=== PATIENT | female | born 1975 | race Caucasian/White ===

== ENCOUNTER 2023-12-28 06:50 | Inpatient (IN) | payer BC, SELFPAY ==
[2023-12-27] VITALS (7 sets, daily range): BP systolic 116–130; BP diastolic 75–87
[2023-12-27 18:03] LABS: Glucose - Point of Care 158 mg/dl (70-99)
[2023-12-27] MEDS: NSS 1000 IV (18:52)
[2023-12-27 18:59] LABS: % Basophils 0.7 % (0-2); % Eosinophils 2.3 % (0-6); % Immature Granulocytes 0.1 % (0-0.5); % Lymphocytes 29.8 % (20.5-51.1); % Monocytes 7.5 % (1.7-9.3); % Neutrophils 59.6 % (42.2-75.2); Absolute Basophils 0.1 10^3/uL (0-0.2); Absolute Eosinophils 0.2 10^3/uL (0-0.7); Absolute Monocytes 0.5 10^3/uL (0.1-0.6); Absolute Neutrophils 4.1 10^3/uL (1.4-6.5); Hematocrit 30.4 % (37.0-47.0); Hemoglobin 10.4 g/dL (12.0-16.0); Mean Corp Hgb Conc. 34.2 g/dL (33.0-37.0); Mean Corpuscular Hgb 28.7 pg (27.0-31.0); Mean Corpuscular Volume 83.7 fL (81.0-99.0); Mean Platelet Volume 9.9 fL (7.4-10.4); Nucleated Red Blood Cells % 0 %; Platelet Count 244 10^3/uL (130-400); Red Blood Cell Count 3.63 10^6/uL (4.20-5.40); Red Cell Dist. Width 13.6 % (11.5-14.5); White Blood Cell Count 6.8 10^3/uL (4.8-10.8)
[2023-12-27 19:10] LABS: HCG, Serum Qualitative Screen Negative
[2023-12-27 19:12] LABS: ALT (SGPT) 13 U/L (0-35); AST (SGOT) 19 U/L (14-36); Albumin 3.4 g/dl (3.5-5.0); Alkaline Phosphatase 72 U/L (38-126); Blood Urea Nitrogen 10 mg/dl (7-17); Calcium 8.5 mg/dl (8.4-10.2); Carbon Dioxide 24 mmol/L (22-30); Chloride 109 mmol/L (98-107); Glucose 88 mg/dl (70-99); Lipase 155 U/L (23-300); Potassium 3.5 mmol/L (3.5-5.1); Sodium 138 mmol/L (135-145); Total Bilirubin 0.2 mg/dl (0.2-1.3); Total Protein 5.7 g/dl (6.3-8.2); eGFR > 60.00
[2023-12-27 21:23] LABS: Urine Albumin Negative (Neg - Trace); Urine Bilirubin Negative (Negative); Urine Character Clear (Clear); Urine Color Yellow; Urine Glucose Negative (Negative); Urine Ketone Negative (Negative); Urine Leukocyte Negative (Negative); Urine Nitrite Positive (Negative); Urine Occult Blood Trace (Negative); Urine Specific Gravity 1.015 (<1.030); Urine Urobilinogen Negative (Neg - 1+)
[2023-12-27 21:32] LABS: Urine Bacteria Many (Negative); Urine Red Blood Cell 0-2 /HPF (0-2); Urine White Cell 0-2 /HPF (0-5)
[2023-12-27 22:54] LABS: Glucose - Point of Care 99 mg/dl (70-99)
--- NOTE | 2023-12-27 23:19 | HPS.HSE ---
Family Physician
-
Family Physician: SARA Hayes
Chief Complaint
-
AMS/Hypoglycemia, Flank Pain
History of Present Illness
48yo F with PMH Anxiety/Depression, ADHD, Insomnia, HTN/HLD, Nephrolithiasis presents to ER accompanied by . Pt is lethargic at time of evaluation. aiding in HPI. He reports for the last 1.5 months she has had recurrent hypoglycemic
episodes usually worst at night with associated restlessness, confusion, lethargy. Pt has history of gastric bypass approx 5 years ago with 100lb wt loss. She was previously on metformin. She reports stopping it about 3-4 weeks ago because of her
hypoglycemia.
Patient checks her BG with finger sticks, machine at bedside reading multiple lows 37-64 on 12/27/2023. Pt denies any surreptitious use of insulin. and pt do endorse recent severe anxiety/depression related to losing her job but denies any
SI/HI. Pt also reports L>R flank pain and frequent UTIs over the past few months. Last treated approximately 3 weeks ago with abx course. Denies fever, chills, chest pain, palps, wheezing, cough, dysuria, calf or leg pain/swelling.
ER course: Pt presents to ER wtih V.S.S. WBC 6.8K, Hgb 10.4 g/dL. LFTs wnl. UA many bact, 0-2 WBC, +nitrite. BG 88-99-[address] Brain (-). CT a/p: No acute disease identified. Limited exam. Moderate hepatomegaly. Stable Moderate fecal
material throughout the colon. Improved Nonobstructing 2 mm right renal stone. Endocrine/psych consulted.
Medical History
Past Medical History
Past Medical History: Reports Other (Anxiety/Depression, ADHD, Insomnia, HTN/HLD, Nephrolithiasis)
Past Surgical History: Reports Other (Appendectomy, C-sectionx3, Lithotripsy, Gastric Bypass )
Social History
Tobacco: Non-smoker
Alcohol: Occasional (infrequent, social)
Drug: None
Personal:
Living: With Family
Family History
Family History: Other (Father with DM2, PVD, CHF)
Allergies / Home Medications
Allergies reflects when Allergies were last updated in [facility].
Home Medications with original date entered in [facility]
Allergy/Medication List:
Allergies
Allergy/AdvReac Type Severity Reaction Status Date / Time
No Known Allergies Allergy Verified 12/27/23 18:05
Home Medications
Adderall XR 20 mg PO BID ADD 06/08/22
alprazolam 0.5 mg tablet (Xanax) 0.5 mg PO TID PRN anxiety 06/08/22
atorvastatin 20 mg tablet (Lipitor) 20 mg PO DAILY High cholesterol 06/08/22
buspirone 15 mg tablet 15 mg PO TID Depression 06/08/22
losartan 50 mg tablet 50 mg PO DAILY Blood pressure 06/08/22
Review of Systems
-
Unable to obtain full review of systems at this time due to: Other
A 12 point ROS was completed and negative except as noted: Yes
Physical Exam
Vital Signs
Vital Signs
Temp Pulse Resp BP Pulse Ox
98.3 F 86 14 118/87 98
12/27/23 23:00 12/27/23 23:00 12/27/23 23:00 12/27/23 23:00 12/27/23 23:00
Physical Exam
General: Well Developed, Well Nourished, Pain and Other (Ill appearing, Lethargic. Awakens to verbal and tactile stimuli )
HEENT: NormoCephalic, Atraumatic, Good Dentition, Neck Nontender and Other (Dry MM. ); No Neck Mass
Respiratory: Clear
Cardiac: S1/S2 and Regular Rhythm
Breast: Deferred by me
GI: Soft, Non Distended and Normal Bowel Sounds
Rectal: Deferred by Provider
Genito-urinary: Costovertebral angle tend (L>R); No Dunlap
Musculoskeletal: No Clubbing, No Cyanosis and No Edema
Skin: Warm
Neuro: Nonfocal/grossly intact
Hematologic/Lymphatic: No Lymphadenopathy
Psych: Depressed
Laboratory Results
-
12/27/23 18:51
12/27/23 18:51
Laboratory Results
Total Bilirubin 0.2 mg/dl (0.2-1.3) 12/27/23 18:51
AST 19 U/L (14-36) 12/27/23 18:51
ALT 13 U/L (0-35) 12/27/23 18:51
Alkaline Phosphatase 72 U/L (38-126) 12/27/23 18:51
Lipase 155 U/L (23-300) 12/27/23 18:51
Data Reviewed
-
Medical Tests (Nuc Med, Echo, EKG etc): Image Personally Visualized and interpreted (EKG: NSR @ 99bpm, No acute ischemic changes, QTC 462ms. )
Lab Data: Labs Reviewed by me
Old Records: Reviewed
Impression/Plan
-
Acute Encephalopathy
Reported Hypoglycemia / Hx DM
- Unclear etiology at this time. No hypoglycemia on admission though reports pt consuming sugar packets since presentation
- Home glucometer recording multiple lows 37-64. BG 88-99-158 since admission. Pt denies surreptitious use of insulin.
- Pt was on metformin, discontinued 3-4 weeks ago, though not likely to cause hypoglycemia
- Certainly there is possibility her machine could be miscalibrated but her degree of lethargy is impressive on exam today.
- Continue D5 1/2 @ 60cc/hr. Q4h accuchecks
- LFTS wnl. Check A1C, TSH, AM Cortisol, C-Peptide
- Check UDS and ETOH level
- Consult Endocrine
Abdominal and Flank Pain / Hx Nephrolithiasis
- UA inconsistent with infection, afeb/no leukocytosis
- CT a/p No acute disease identified. Limited exam. Moderate hepatomegaly. Stable Moderate fecal material throughout the colon. Improved Nonobstructing 2 mm right renal stone.
- Possibly related to constipation. Reports last BM a few days ago. Continue miralax bid and prn bowel regimen
Anxiety/Depression - reports worsening depression without SI/HI related to job loss. Holding sedatives (xanax). Continue buspirone. Psych consulted.
ADHD - Continue adderall
HTN/HLD - BP stable. Continue statin. Holding losartan to observe for any hypotension trends causing encephalopathy.
Diet: Regular
DVT Ppx: Lovenox
Code Status: Full Code
[2023-12-27] MEDS: DEXTROSE 50% SYRINGE 12.5 GRAMS IV (23:20)
[2023-12-27] MEDS: D5/0.45%NACL 1000 IV (23:42)
[2023-12-28 00:15] VITALS: BP 120/81; BMI 27.3
[2023-12-28 00:25] LABS: Glucose - Point of Care 91 mg/dl (70-99)
[2023-12-28] MEDS: MIRALAX PO (00:59)
[2023-12-28 01:26] LABS: Alcohol None Detected
[2023-12-28 01:38] LABS: Amphetamines Positive (Negative); Barbiturates Negative (Negative); Benzodiazepines Positive (Negative); Buprenorphine Negative (Negative); Cocaine Negative (Negative); Marijuana Negative (Negative); Methadone Negative (Negative); Methamphetamines Negative (Negative); Opiates Negative (Negative); Phencyclidine Negative (Negative); Tricyclic Antidepressants Negative (Negative)
[2023-12-28 02:01] LABS: Fentanyl, Urine Negative (Negative)
[2023-12-28 04:31] LABS: Glucose - Point of Care 102 mg/dl (70-99)
[2023-12-28 06:48] LABS: % Basophils 0.5 % (0-2); % Eosinophils 2.7 % (0-6); % Immature Granulocytes 0.2 % (0-0.5); % Lymphocytes 25.3 % (20.5-51.1); % Monocytes 7.6 % (1.7-9.3); % Neutrophils 63.7 % (42.2-75.2); Absolute Eosinophils 0.2 10^3/uL (0-0.7); Absolute Lymphocytes 1.6 10^3/uL (1.2-3.4); Absolute Monocytes 0.5 10^3/uL (0.1-0.6); Hematocrit 32.9 % (37.0-47.0); Hemoglobin 11.2 g/dL (12.0-16.0); Mean Corpuscular Hgb 28.7 pg (27.0-31.0); Mean Corpuscular Volume 84.4 fL (81.0-99.0); Mean Platelet Volume 10.1 fL (7.4-10.4); Nucleated Red Blood Cells % 0 %; Platelet Count 259 10^3/uL (130-400); Red Cell Dist. Width 13.9 % (11.5-14.5); White Blood Cell Count 6.3 10^3/uL (4.8-10.8)
[2023-12-28 07:00] VITALS: BP 128/85
[2023-12-28 07:27] LABS: Blood Urea Nitrogen 10 mg/dl (7-17); Calcium 8.7 mg/dl (8.4-10.2); Carbon Dioxide 25 mmol/L (22-30); Chloride 111 mmol/L (98-107); Estimated Creatinine Clearance 77 ml/min; Glucose 63 mg/dl (70-99); Potassium 3.4 mmol/L (3.5-5.1); Sodium 140 mmol/L (135-145); eGFR > 60.00
[2023-12-28 07:50] LABS: Glucose - Point of Care 176 mg/dl (70-99)
[2023-12-28 08:00] LABS: Cortisol, Random 10.6 ug/dl; TSH Reflex To Free T4 0.71 uIU/ml (0.47-4.68)
[2023-12-28] MEDS: BUSPAR 15 MG PO ×3 (08:24→22:19)
[2023-12-28] MEDS: MIRALAX 17 GRAMS PO ×2 (08:24→19:52)
[2023-12-28 10:56] LABS: Glycohemoglobin (HgbA1c) 5.6 % (4.0-5.6)
[2023-12-28 12:02] LABS: Glucose - Point of Care 225 mg/dl (70-99)
--- NOTE | 2023-12-28 15:09 | CS.PSYCHR ---
Consult Summary - Psychiatry
-
Pt is 48 yo female brought in by to ER due to lethargy/excessive sleepiness. reported recurrent hypoglycemic episodes usually worst at night with associated restlessness, confusion, lethargy for the past 1 1/2 months. Pt seen with
present. Pt sleeping soundly, resting in bed. answered questions, stated pt has not been awake today. Pt reportedly has been more depressed recently since loss of her job. unsure how often pt takes prn Xanax.
PMH: HTN, HLD, Nephrolithiasis; gastric bypass approx 5 years ago with reported 100 lb wt loss
Psych hx: anxiety, depression, Rx Adderall XR and IR by outpatient psychiatrist Dr Alas for possible ADHD, also Rx'd Xanax 0.5 mg prn, last filled #90 on 11/27/23; Buspar 15 mg TID
MSE: pt sound asleep/lethargic. Unable to interview
Imp: Delirium, with lethargy. Depression could cause fatigue. but not this degree of drowsiness/lethargy
Unspecified depression, anxiety
Rec: Will order Xanax 0.5 mg on prn basis, in case pt shows signs of benzo withdrawal or significant anxiety, would continue to hold if sedated
Would hold off Adderall XR/IR- increases potential benzo withdrawal risks, and indication is unclear
Return to Outpatient Psychiatrist when medically stable
Will follow
[2023-12-28 15:12] VITALS: BP 129/92
[2023-12-28] MEDS: MAXIPIME 2000 MG IV (15:59)
[2023-12-28] MEDS: STERILE WATER FOR INJECTION 10 ML IV (16:00)
[2023-12-28] MEDS: NSS 1000 IV (16:00)
[2023-12-28 16:01] LABS: Glucose - Point of Care 134 mg/dl (70-99)
--- NOTE | 2023-12-28 16:58 | W.PN.HOSP.TC ---
Today's Communication/Plan
-
IV antibiotics pending urine cultures
IV fluids
Monitor mental status.
Assessment / Plan
Assessment / Plan
Impression
Toxic metabolic encephalopathy.
Reported hypoglycemia, not documented after admission.
UTI, possible pyelonephritis.
Type 2 diabetes previously on metformin.
Essential hypertension.
Dyslipidemia
ADHD.
Anxiety/depression
Status post gastric bypass with over 100 pound weight loss
Plan
Toxic metabolic encephalopathy with lethargy suspect secondary to UTI.
Urine drug screen positive for amphetamines and benzodiazepines (patient is on Adderall and Xanax prior to presentation).
Lethargic, although rest of the neurologic examination with no focal findings
Possibly related to UTI.
Address UTI.
Continue Adderall and Xanax with caution
Continue BuSpar
UTI.
Afebrile and hemodynamically stable.
No evidence for sepsis
Exam consistent with right flank tenderness
CT scan with right 2 mm renal colliculi with no obstruction no hydronephrosis.
Patient reports multiple courses of antibiotics prior to presentation, although with persistent right flank pain and foul-smelling urine
Will start cefepime pending urine cultures
Continue IV hydration
Type 2 diabetes
Hemoglobin A1c 5.6
Reported hypoglycemia at home, although no recurrence since admission.
Currently hyperglycemic
Reported being taken off metformin, latest less likely would cause hypoglycemia.
Doubt surreptitious use of medications
C-peptide pending.
Stop IV fluids
Diet has been advanced
Monitor oral intake and for recurrent hypoglycemia while on serial Accu-Cheks.
Essential hypertension/dyslipidemia
Continue losartan and Lipitor
ADHD/anxiety continue Adderall, BuSpar, exam
Discussed with patient's at the bedside.
Anticipated Discharge: 24 - 48 hours
Subjective/Interval History
-
Date of Service: December 28, 2023
Objective Data
-
Labs:
Laboratory Results
12/28/23
06:26
WBC 6.3
Hgb 11.2 L
Hct 32.9 L
Plt Count 259
Sodium 140
Potassium 3.4 L
Chloride 111 H
Carbon Dioxide 25
BUN 10
Creatinine 0.7
Glucose 63 L
Calcium 8.7
Vital Signs:
Vital Signs
Temp Pulse Resp BP Pulse Ox
97.9 F 92 18 129/92 98
12/28/23 15:12 12/28/23 15:12 12/28/23 15:12 12/28/23 15:12 12/28/23 15:12
I&O
12/27/23 12/28/23 12/29/23
06:59 06:59 06:59
Intake Total 480 / 480
Balance 480 / 480
Physical Exam
-
General: Well Developed and No Apparent Distress
HEENT: Normocephalic, Atraumatic and Moist Mucous Membranes
Respiratory: Clear to Auscultation
Cardiac: Regular Rhythm and S1/S2; Negative Murmur, Rub or Gallop
GI: Soft, Nontender, Nondistended and Normal Bowel Sounds; Negative Organomegaly
Rectal: Deferred by Provider
Musculoskeletal: No Clubbing, No Cyanosis and No Edema
Skin: Negative Rash
Neuro: Nonfocal/Grossly Intact and Other (Generally weak and lethargic, although communicative and responding to all questions appropriately.)
[2023-12-28] MEDS: LIPITOR 20 MG PO (17:38)
[2023-12-28] MEDS: LOVENOX 40 MG SC (17:38)
[2023-12-28] MEDS: SENOKOT-S 1 TABLET PO (17:39)
[2023-12-28 20:24] LABS: Glucose - Point of Care 75 mg/dl (70-99)
[2023-12-28 22:12] LABS: Glucose - Point of Care 105 mg/dl (70-99)
--- NOTE | 2023-12-28 22:45 | PTCARENOTE ---
Patient is very anxious/restless and adamantly asking for Xanax to sleep. Xanax given as ordered
[2023-12-28] MEDS: XANAX 0.5 MG PO (22:48)
[2023-12-28] MEDS: TYLENOL 650 MG PO (22:48)
[2023-12-28 23:13] VITALS: BP 131/93
[2023-12-29 02:33] LABS: Glucose - Point of Care 95 mg/dl (70-99)
[2023-12-29] MEDS: MAXIPIME 2000 MG IV ×2 (02:59→15:51)
[2023-12-29] MEDS: STERILE WATER FOR INJECTION 10 ML IV ×2 (02:59→15:51)
[2023-12-29 03:52] LABS: Glucose - Point of Care 140 mg/dl (70-99)
[2023-12-29 06:09] LABS: Glucose - Point of Care 90 mg/dl (70-99)
[2023-12-29 06:28] LABS: Glucose - Point of Care 86 mg/dl (70-99)
[2023-12-29 07:00] VITALS: BP 149/93
[2023-12-29 08:02] LABS: Glucose - Point of Care 89 mg/dl (70-99)
[2023-12-29] MEDS: MIRALAX 17 GRAMS PO ×2 (08:31→20:23)
[2023-12-29] MEDS: BUSPAR 15 MG PO ×3 (08:31→21:25)
[2023-12-29 09:02] LABS: % Basophils 0.7 % (0-2); % Eosinophils 3.4 % (0-6); % Immature Granulocytes 0.2 % (0-0.5); % Lymphocytes 28.9 % (20.5-51.1); % Monocytes 8.4 % (1.7-9.3); % Neutrophils 58.4 % (42.2-75.2); Absolute Eosinophils 0.2 10^3/uL (0-0.7); Absolute Lymphocytes 1.6 10^3/uL (1.2-3.4); Absolute Monocytes 0.5 10^3/uL (0.1-0.6); Absolute Neutrophils 3.1 10^3/uL (1.4-6.5); Hematocrit 33.3 % (37.0-47.0); Hemoglobin 11.3 g/dL (12.0-16.0); Mean Corp Hgb Conc. 33.9 g/dL (33.0-37.0); Mean Corpuscular Volume 85.4 fL (81.0-99.0); Mean Platelet Volume 10.2 fL (7.4-10.4); Nucleated Red Blood Cells % 0 %; Platelet Count 241 10^3/uL (130-400); Red Cell Dist. Width 13.4 % (11.5-14.5); White Blood Cell Count 5.4 10^3/uL (4.8-10.8)
[2023-12-29 09:17] LABS: Glucose - Point of Care 119 mg/dl (70-99)
[2023-12-29 09:32] LABS: Blood Urea Nitrogen 11 mg/dl (7-17); Carbon Dioxide 28 mmol/L (22-30); Chloride 105 mmol/L (98-107); Estimated Creatinine Clearance 89 ml/min; Glucose 79 mg/dl (70-99); Potassium 3.8 mmol/L (3.5-5.1); Sodium 139 mmol/L (135-145); eGFR > 60.00
--- NOTE | 2023-12-29 10:36 | W.PN.UPDATE ---
Update Note
Progress Note Update
Patient seen at bedside, chart reviewed, discussed with RN. Ms. Moran was asleep when I entered the room, she did awake to name but quickly fell back asleep. I did ask how she was doing and she reported she is very tired and is sick of being in
pain but did not elaborate. I probed to see if she felt as if she was depressed and her answer was 'maybe'. She then fell back asleep and would no longer answer me. RN reports she woke up for breakfast, ate all of her breakfast, buttered her own
toast, etc. then when she was done she told the nurse she was tired and went back to sleep. Glucoses being monitored frequently and reported as low normal. TSH also checked and WNL. Xanax ordered as a PRN as it is not clear how often she was using
at home and she is still quite sedate, she did receive one dose overnight.
Impression/Recommendations: Delirium with lethargy; Unspecified depression and anxiety by history - Could continue Xanax 0.5 mg PRN in attempts to avoid any benzo withdrawal if she is to be more awake or if reports of significant anxiety. Adderall
should continue to be held for now with no clear indication for it's use and usage could potentiate benzo withdrawal.
[2023-12-29] MEDS: SENOKOT-S 1 TABLET PO (11:53)
[2023-12-29] MEDS: NSS 1000 IV ×2 (11:53→21:24)
[2023-12-29 12:06] LABS: Glucose - Point of Care 97 mg/dl (70-99)
[2023-12-29 15:47] VITALS: BP 150/94
--- NOTE | 2023-12-29 16:13 | W.PN.HOSP.TC ---
Today's Communication/Plan
-
Continue cefepime pending urine cultures.
Continue IV fluids.
Psychiatry input appreciated
Patient mental status back to baseline
Assessment / Plan
Assessment / Plan
Impression
Toxic metabolic encephalopathy.
Reported hypoglycemia, not documented after admission.
UTI, possible pyelonephritis.
Type 2 diabetes previously on metformin.
Essential hypertension.
Dyslipidemia
ADHD.
Anxiety/depression
Status post gastric bypass with over 100 pound weight loss
Plan
Toxic metabolic encephalopathy with lethargy suspect secondary to UTI.
Urine drug screen positive for amphetamines and benzodiazepines (patient is on Adderall and Xanax prior to presentation).
Lethargic, although rest of the neurologic examination with no focal findings
Possibly related to UTI.
Address UTI.
Agree with holding Adderall and continuing Xanax.
Continue BuSpar
UTI.
Afebrile and hemodynamically stable.
No evidence for sepsis
Exam consistent with right flank tenderness
CT scan with right 2 mm renal colliculi with no obstruction no hydronephrosis.
Patient reports multiple courses of antibiotics prior to presentation, although with persistent right flank pain and foul-smelling urine
Will start cefepime pending urine cultures
Continue IV hydration
Type 2 diabetes
Hemoglobin A1c 5.6
Reported hypoglycemia at home, although no recurrence since admission.
Currently hyperglycemic
Reported being taken off metformin, latest less likely would cause hypoglycemia.
Doubt surreptitious use of medications
C-peptide pending.
Stop IV fluids
Diet has been advanced
Monitor oral intake and for recurrent hypoglycemia while on serial Accu-Cheks.
Essential hypertension/dyslipidemia
Continue losartan and Lipitor
ADHD/anxiety continue Adderall, BuSpar, exam
Discussed with patient's at the bedside.
Anticipated Discharge: 24 - 48 hours
Subjective/Interval History
-
Date of Service: December 29, 2023
Objective Data
-
Labs:
Laboratory Results
12/29/23
07:59
WBC 5.4
Hgb 11.3 L
Hct 33.3 L
Plt Count 241
Sodium 139
Potassium 3.8
Chloride 105
Carbon Dioxide 28
BUN 11
Creatinine 0.6
Glucose 79
Calcium 9.0
Vital Signs:
Vital Signs
Temp Pulse Resp BP Pulse Ox
98.3 F 88 17 150/94 97
12/29/23 15:47 12/29/23 15:47 12/29/23 15:47 12/29/23 15:47 12/29/23 15:47
I&O
12/28/23 12/29/23 12/30/23
06:59 06:59 06:59
Intake Total 4320 / 4320
Balance 4320 / 4320
Physical Exam
-
General: Well Developed and No Apparent Distress
HEENT: Normocephalic, Atraumatic and Moist Mucous Membranes
Respiratory: Clear to Auscultation
Cardiac: Regular Rhythm and S1/S2; Negative Murmur, Rub or Gallop
GI: Soft, Nontender, Nondistended and Normal Bowel Sounds; Negative Organomegaly
Rectal: Deferred by Provider
Musculoskeletal: No Clubbing, No Cyanosis and No Edema
Skin: Negative Rash
Neuro: Awake, Alert, Oriented and Nonfocal/Grossly Intact
Psych: Anxious
[2023-12-29 16:15] LABS: Glucose - Point of Care 128 mg/dl (70-99)
--- NOTE | 2023-12-29 16:15 | CM ---
Patient seen bedside with , left the room for initial assessment. Patient resides with spouse and three children in multiple story home. Patient is independent with ADLs/IADLs, no DME, VN, or SNF. Patient reports she recently lost her
job which has been causing her a lot of stress financially. Patient interested in resources from [email or web address] regarding food assistance. Patient PCP Julia Hansen, pharmacy [facility] in [place], confirms prescription coverage. CM reviewed OBS form,
refused to sign, placed in chart. CM will continue to follow for all discharge planning needs.
Plan; home no needs, interested in resources from [email or web address]
[2023-12-29] MEDS: LIPITOR 20 MG PO (17:26)
[2023-12-29] MEDS: LOVENOX 40 MG SC (17:26)
[2023-12-29 20:29] LABS: Glucose - Point of Care 149 mg/dl (70-99)
[2023-12-29] MEDS: XANAX 0.5 MG PO (21:28)
[2023-12-29 23:15] VITALS: BP 154/97
--- NOTE | 2023-12-29 23:31 | PTCARENOTE ---
Pt has been anxious and feeling hot wanting to leave the hospital. She wanted to walk the hallways which she could, but decided to leave the unit to go to the chapel. Do to her condition, pt is a fall risk. Pt is AAOX3. Pt was escorted back to the
unit with the assistance of security. Pt continued to be anxious and was advice no to leave with medical advice. Pt was move to another room close to the nurses station to help her with the sensation of feeling hot.
[2023-12-30 00:04] LABS: Glucose - Point of Care 78 mg/dl (70-99)
[2023-12-30 00:49] LABS: C-Peptide 5.2 ng/mL (0.5-3.3)
[2023-12-30] MEDS: MAXIPIME 2000 MG IV (04:22)
[2023-12-30] MEDS: STERILE WATER FOR INJECTION 10 ML IV (04:22)
[2023-12-30 04:24] LABS: Glucose - Point of Care 82 mg/dl (70-99)
[2023-12-30 07:18] LABS: Glucose - Point of Care 99 mg/dl (70-99)
[2023-12-30] MEDS: NSS 1000 IV (07:23)
[2023-12-30] MEDS: MIRALAX 17 GRAMS PO (07:23)
[2023-12-30] MEDS: BUSPAR 15 MG PO (07:23)
[2023-12-30 07:43] VITALS: BP 149/93
--- NOTE | 2023-12-30 11:48 | W.PN.UPDATE ---
Update Note
Progress Note Update
reviewed chart . attempted to see patient but she was sleeping. spoke with nursing who report that patient was very sedated yesterday but today when she is awake she is more alert and able to engage. will [facility] back this afternoon to see her if
possible when she is awake.
[2023-12-30 12:03] LABS: Glucose - Point of Care 95 mg/dl (70-99)
--- NOTE | 2023-12-30 12:22 | W.DS.TRANS ---
DC Summary - [facility] Room Supervisor
-
Discharge Instructions:
Discharge Diagnosis/Procedures UTI, TME
Diet Regular
Instructions:
Stand-Alone Forms:
Changes to Home Medications: Yes
Discharge Medications:
DC Medications w/original date entered in [facility]
alprazolam 0.5 mg tablet (Xanax) 0.5 mg PO TID PRN anxiety 06/08/22
atorvastatin 20 mg tablet (Lipitor) 20 mg PO DAILY High cholesterol 06/08/22
buspirone 15 mg tablet 15 mg PO TID Depression 06/08/22
losartan 50 mg tablet 50 mg PO DAILY Blood pressure 06/08/22
cephalexin 500 mg capsule 500 mg PO Q8H #15 caps 12/30/23
Home Medication Changes
Adderall stopped
Pending Results: No
--- NOTE | 2023-12-30 12:34 | CM ---
patient is stable for dc home with no needs.
--- NOTE | 2023-12-30 14:57 | ED.GENMED ---
History of Present Illness
General
Chief Complaint: Blood Sugar Problem
Source: patient and spouse
Exam Limitations: none
Time Seen by Provider: 12/27/23 18:15
History of Present Illness
History of Present Illness:
48-year-old female presents with episodes of lethargy confusion change in mental status intermittently for months. Seems to be associated with hypoglycemic episodes. Blood sugar has dropped into the 20s and 30s based on her home monitor. She is
on metformin. She has a history of gastric bypass. She denies unusual headache photophobia fever. She has had recurrent UTIs.
Past History
Past History
ED Past Medical History: Hypercholesterolemia, NIDDM and Other (Recurrent UTIs)
ED Past Surgical History: , Urological and Other (Gastric bypass)
Review of Systems
Review of Systems
All Other Systems: Not applicable
Constitutional: Denies fever or chills
Phy Exam
Physical Exam
Physical Exam:
GENERAL: Alert and oriented in no apparent distress. At times lethargic
EYE: Orbits normal.
NECK: Supple, no thyroid palpable
ENT: Pharynx without erythema
CARDIAC: Regular rate and rhythm without any obvious murmurs.
LUNGS: Clear breath sounds,normal
ABDOMEN: Soft, without focal tenderness or distention
NEUROLOGICAL: Alert and oriented , grossly non-focal. Neck supple.
SKIN: Warm and dry, no rash or lesion, no discoloration, skin intact.
MUSCULOSKELETAL: No edema,no deformity.Good color
PSYCH: Normal and appropriate interaction.
Course
Orders/Labs/Results
Orders:
Orders
12/27/23 18:35
Electrocardiogram (*1) Stat
Reason for Study: Other
Other Reason for Exam: r/o kidney stone
CT Abd/pel Without Iv Or Oral Urgent
Comment:
Reason For Exam: Recurring bladder infection/flank pain
CT Head W/o Iv Contrast Urgent
Comment:
Reason For Exam: Recurrent lethargy
EKG- Treatment ONCE
IV Insert/Care/Rem.- Treatment PRN
0.9% Sodium Chloride 1000 ml [Nss] 1,000 ml IV BOLUS
Test Result ONCE
Pulse Ox/cont/shift [RESP] Stat
Quantity: 1
12/27/23 18:51
Alcohol Urgent
Complete Blood Count/With Diff Urgent
Comprehensive Metabolic Panel Urgent
HCG, Serum Qualitative Screen Urgent
Lipase Urgent
12/27/23 21:16
Fentanyl, Urine Urgent
Urinalysis Reflex To Culture Urgent
Date Specimen was Collected: 12/27/23
Time Specimen was Collected: 21:14
Urine Drug Abuse Screen Urgent
Date Specimen was Collected: 12/27/23
Time Specimen was Collected: 21:14
Urine Microscopic Reflex Cult Urgent
Urine Culture Urgent
JASMIN Source: U
Specimen Description:
Date Specimen was Collected: 12/27/23
Time Specimen was Collected: 21:14
12/27/23 22:00
Flush (0.9% Sodium Chloride) [Flush (Nss)] See Dose Instructions IV PER PROTOCOL
12/27/23 23:13
Dextrose 50%-Water [Dextrose 50% Syringe] 12.5 grams IV NOW STA
12/27/23 23:14
Admit/Transfer Patient As Directed
Co-Sign Provider:
Level of Care: Observation services
Assign to:: Medical/Surgical
Physician / Group: Frances
Transfer to: Medical/Surgical
Diagnosis: Hypoglycemia/AMS
Patient Condition: Fair
12/27/23 23:15
Code Status As Directed
Resuscitation Status: Full Code
12/27/23 23:19
Consult Notification Routine
Specialty to Notify: Psychiatry
Date consulting provider notified: 12/28/23
Time consulting provider notified: 07:36
Notified:: Provider
PSYCHIATRY CONSULT Routine
Consulting Provider: Reny Valerio
Was physician already notified: No
Reason for consult: anxiety/depression/AMS
12/27/23 23:20
Accucheck [Bedside Glucose Monitoring] Q4H
Frequency: q4h
12/27/23 23:23
C-Peptide [S] Urgent
Comment: add or draw
12/27/23 23:45
Dextrose 5%/0.45%Sodchl 1000ML [D5/0.45%NaCl] 1,000 ml IV 60 mls/hr
12/28/23 00:19
Acetaminophen [Tylenol] 650 mg PO Q4HPRN PRN
Bisacodyl [Dulcolax] 10 mg RECTAL [id number] PRN
Docusate W/Senna [Senokot-S] 1 tablet PO BIDPRN PRN
Ipratropium/Albuterol Sulfate [Duoneb] 3 ml INH R Q4HPRN PRN
Ondansetron Injectable [Zofran] 4 mg IV Q6HPRN PRN
Polyethylene Glycol Powder [Miralax] 17 grams PO BID
12/28/23 00:19
Consult Endocrinology [ENDOCRINOLOGY CONSULT] Routine
Consulting Provider: Laura Banerjee
Was physician already notified: No
Reason for consult: hypoglycemia/AMS at home- BG 37-64
Consult Notification Routine
Specialty to Notify: Endocrinology
Date consulting provider notified: 12/28/23
Time consulting provider notified: 07:37
Notified:: Provider
Activity As Directed
Activity Level: With Assistance
Neurological Checks As Directed
Frequency: q4h
Vital Signs As Directed
Frequency: Per unit guidelines
DX Deep Vein Thrombosis Video Routine
12/28/23 00:56
Add On- LAB Routine
Tests Added?: urine drug screen, ETOH level
12/28/23 02:28
Pt Screening Request from Bernie Routine
12/28/23 03:20
Accucheck [Bedside Glucose Monitoring] Q4H
Frequency: q4h
12/28/23 Breakfast
Regular
At Your Request: Full Participation
Does patient need a safe tray?: No
12/28/23 06:26
Basic Metabolic Panel IN AM
Complete Blood Count/With Diff IN AM
Cortisol, Random IN AM
Hemoglobin A1c [Glycohemoglobin (HgbA1c)] IN AM
TSH Reflex To Free T4 IN AM
12/28/23 07:20
Accucheck [Bedside Glucose Monitoring] Q4H
Frequency: q4h
12/28/23 08:00
Adderall XR See Dose Instructions PO BID
Buspirone [Buspar] 15 mg PO TID
12/28/23 11:20
Accucheck [Bedside Glucose Monitoring] Q4H
Frequency: q4h
12/28/23 12:19
Level of Care Change As Directed
Level of Care: Inpatient admission
Reason for Hospitalization: TME, UTI
Expected length of stay greater than two midnights?: Yes
ELOS- Estimated Length of Stay in days: 2
I certify the patient meets the requirements for IP care: Yes
12/28/23 12:44
Request for Physical Therapy [NOTICE] Routine
12/28/23 14:45
0.9% Sodium Chloride 1000 ml [Nss] 1,000 ml IV DIRECTED
12/28/23 15:20
Accucheck [Bedside Glucose Monitoring] Q4H
Frequency: q4h
12/28/23 15:23
Alprazolam [Xanax] 0.5 mg PO Q6HPRN PRN
12/28/23 16:00
Cefepime HCl [Maxipime] 2,000 mg IV Q12H
Sterile Water [Sterile Water For Injection] 10 ml IV Q12H
12/28/23 18:00
Atorvastatin [Lipitor] 20 mg PO QPM
Enoxaparin Sodium [Lovenox] 40 mg SC QPM
12/28/23 19:20
Accucheck [Bedside Glucose Monitoring] Q4H
Frequency: q4h
12/28/23 23:20
Accucheck [Bedside Glucose Monitoring] Q4H
Frequency: q4h
12/29/23 03:20
Accucheck [Bedside Glucose Monitoring] Q4H
Frequency: q4h
12/29/23 07:20
Accucheck [Bedside Glucose Monitoring] Q4H
Frequency: q4h
12/29/23 07:59
BMP [Basic Metabolic Panel] IN AM
CBC/With Diff [Complete Blood Count/With Diff] IN AM
12/29/23 11:20
Accucheck [Bedside Glucose Monitoring] Q4H
Frequency: q4h
12/29/23 11:45
0.9% Sodium Chloride 1000 ml [Nss] 1,000 ml IV 100 mls/hr
12/29/23 15:20
Accucheck [Bedside Glucose Monitoring] Q4H
Frequency: q4h
12/29/23 19:20
Accucheck [Bedside Glucose Monitoring] Q4H
Frequency: q4h
12/29/23 23:20
Accucheck [Bedside Glucose Monitoring] Q4H
Frequency: q4h
12/30/23 03:20
Accucheck [Bedside Glucose Monitoring] Q4H
Frequency: q4h
12/30/23 07:20
Accucheck [Bedside Glucose Monitoring] Q4H
Frequency: q4h
12/30/23 11:20
Accucheck [Bedside Glucose Monitoring] Q4H
Frequency: q4h
12/30/23 12:21
Discharge Patient As Directed
Month/Year vaccine administered for 4602-2117 flu season: 8622-3666 Season/Unsure
Do you have a designated caregiver: Yes-same as spokesperson
12/30/23 12:31
Add On- LAB Routine
Tests Added?: Sulfonylurea level
Abnormal Lab Results
12/27/23 12/27/23 12/27/23
18:02 18:51 21:16
RBC 3.63 L 10^6/uL
(4.20-5.40)
Hgb 10.4 L g/dL
(12.0-16.0)
Hct 30.4 L %
(37.0-47.0)
Potassium
Chloride 109 H mmol/L
(98-107)
Glucose
C-Peptide
Total Protein 5.7 L g/dl
(6.3-8.2)
Albumin 3.4 L g/dl
(3.5-5.0)
Ur Occult Blood Reflex Trace A
(Negative)
Urine Nitrite (Reflex) Positive A
(Negative)
Urine Bacteria (Reflex) Many A
(Negative)
Ur Amphetamines Screen Positive H
(Negative)
U Benzodiazepines Scrn Positive H
(Negative)
POC Glucose 158 H mg/dl
(70-99)
12/28/23 12/28/23 12/28/23
04:29 06:26 07:48
RBC 3.90 L 10^6/uL
(4.20-5.40)
Hgb 11.2 L g/dL
(12.0-16.0)
Hct 32.9 L %
(37.0-47.0)
Potassium 3.4 L mmol/L
(3.5-5.1)
Chloride 111 H mmol/L
(98-107)
Glucose 63 L mg/dl
()
C-Peptide 5.2 H ng/mL
(0.5-3.3)
Total Protein
Albumin
Ur Occult Blood Reflex
Urine Nitrite (Reflex)
Urine Bacteria (Reflex)
Ur Amphetamines Screen
U Benzodiazepines Scrn
POC Glucose 102 H mg/dl 176 H mg/dl
() ()
12/28/23 12/28/23 12/28/23
12:00 15:59 22:10
RBC
Hgb
Hct
Potassium
Chloride
Glucose
C-Peptide
Total Protein
Albumin
Ur Occult Blood Reflex
Urine Nitrite (Reflex)
Urine Bacteria (Reflex)
Ur Amphetamines Screen
U Benzodiazepines Scrn
POC Glucose 225 H mg/dl 134 H mg/dl 105 H mg/dl
() () ()
12/29/23 12/29/23 12/29/23
03:51 07:59 09:16
RBC 3.90 L 10^6/uL
(4.20-5.40)
Hgb 11.3 L g/dL
(12.0-16.0)
Hct 33.3 L %
(37.0-47.0)
Potassium
Chloride
Glucose
C-Peptide
Total Protein
Albumin
Ur Occult Blood Reflex
Urine Nitrite (Reflex)
Urine Bacteria (Reflex)
Ur Amphetamines Screen
U Benzodiazepines Scrn
POC Glucose 140 H mg/dl 119 H mg/dl
(70-99) (70-99)
12/29/23 12/29/23
16:14 20:28
RBC
Hgb
Hct
Potassium
Chloride
Glucose
C-Peptide
Total Protein
Albumin
Ur Occult Blood Reflex
Urine Nitrite (Reflex)
Urine Bacteria (Reflex)
Ur Amphetamines Screen
U Benzodiazepines Scrn
POC Glucose 128 H mg/dl 149 H mg/dl
(70-99) (70-99)
12/29/23 07:59
12/29/23 07:59
Vital Signs
Initial and Last Documented VS:
Initial Vital Signs
Temp Pulse Resp BP Pulse Ox
98.8 F 109 16 119/81 96
12/27/23 18:00 12/27/23 18:00 12/27/23 18:00 12/27/23 18:00 12/27/23 18:00
Last Documented Vital Signs
Temp Pulse Resp BP Pulse Ox
98.1 F 90 18 149/93 99
12/30/23 07:43 12/30/23 07:43 12/30/23 07:43 12/30/23 07:43 12/30/23 08:00
MDM/Problems Addressed
Differential Diagnosis Includes:
Patient at times mildly lethargic but nontoxic. Nonfocal exam. No fever. Patient shows on her monitor reported recurrent episodes of hypoglycemia however no documented episodes here. Given the recurrence of these episodes and mental status
change patient will be admitted. Urine results were pending on ER disposition time
*Radiology
Radiology exam reviewed: radiology read reviewed (Negative head CT. Unremarkable abdominal CT)
*Pulse Oximetry
Patient hypoxic: no
*Critical Care Note
Total Time (30-74mins, 75-104mins- exclusive of procedures): Not Applicable
Data Reviewed
Review of Other/Old Records Reveals: Labs and Records
ED Attending Note
-
Portions of this chart may have been created with voice recognition software.� Occasional wrong word or��sound alike� substitutions may have occurred due to the inherent limitations of voice recognition software.
Discharge Plan
Departure
Patient Disposition: Admit
Date of Disposition: 12/27/23
Time of Disposition: 21:04
Presentation/result/management discussed w/ accepting MD/DO: Hospitalist
Discharge Problem:
Change in mental status, Recurrent hypoglycemia, History of recurrent UTI
Interventions
Interventions:
*Risk Screen - Suicide Last Done: 12/27/23 18:08
*General Assessment Last Done: 12/27/23 18:00
*Neglect/Abuse Screening Last Done: 12/27/23 18:08
ED- Fall Risk Assessment Last Done: 12/27/23 23:47
*ED COVID-19 Vaccine History Last Done: 12/27/23 18:00
*Nursing Disposition Last Done: 12/27/23 23:47
ED- Neurological Assessment Last Done: 12/27/23 18:55
Discharge Date and Time
Discharge Date/Time: 12/28/23 00:05
== END 2023-12-30 12:45 | disposition home or self-care (01) | DRG 689 ==
LOC: EICU 06:50
PROVIDERS: ADMITTING PHYSICIAN Internal Medicine; ATTENDING PHYSICIAN Internal Medicine; EMERGENCY PHYSICIAN Emergency Medicine; FAMILY PHYSICIAN Nurse Practitioner; OTHER PHYSICIAN Psychiatry & Neurology Psychiatry
DX: N39.0 Urinary tract infection, site not specified (principal); G92.8 Other toxic encephalopathy; E78.00 Pure hypercholesterolemia, unspecified; E11.9 Type 2 diabetes mellitus without complications; I10 Essential (primary) hypertension; N20.0 Calculus of kidney; Z60.8 Other problems related to social environment; K59.00 Constipation, unspecified; B96.20 Unspecified Escherichia coli [E. coli] as the cause of diseases classified elsewhere; G47.00 Insomnia, unspecified; F90.9 Attention-deficit hyperactivity disorder, unspecified type; F32.A Depression, unspecified; F41.9 Anxiety disorder, unspecified; Z98.84 Bariatric surgery status; Z87.440 Personal history of urinary (tract) infections; Z79.84 Long term (current) use of oral hypoglycemic drugs
CPT/HCPCS: 70450; 74176; 80048; 80053; 80306; 80307; 81003; 81015; 82077; 82533; 82962; 83036; 83690; 84443; 84681; 84703; 85025; 87077; 87086; 87186; 93005; 96360; 99285

== ENCOUNTER → 2025-03-02 09:15 | Outpatient (REF) | payer BC, SELFPAY | LOC: CLAB 09:15 | PROVIDERS: ATTENDING PHYSICIAN Urology | DX: N30.10 Interstitial cystitis (chronic) without hematuria (principal) | CPT/HCPCS: 88305 ==